=== PATIENT | female | born 1960 | race Caucasian/White ===

== ENCOUNTER → 2018-02-17 14:17 | Outpatient (CLI) | payer BC, SELFPAY ==
--- NOTE | 2018-02-17 | LES_PTH ---
PATIENT: SONIDO ZAPATA LOC: [facility] U#:[id number] AGE/SX: 65/F ROOM: RE02/17/[address]: Dr. Ez Ayon MD : [id number] BED: DIS: SPEC #: [id number] RECD: 02/17/18 14:31 STATUS: JACKY LAURA #: [id number] ALEC: 02/17/18 00:[address]: Ez Ayon DEPT: SURGICAL PATHOLOGY RECD BY: Lorenzo Blackburn ENTERED: 02/17/18 14:31 SP TYPE: Lesion OTHR DR: Dr. Jesu Snow III, MD Tissues: Skin of eyelid, NOS Procedures: Surgery Specimen Level IV HEADER OPERATION: RLL inclusion cyst excision PRE-OP DIAGNOSIS: RLL inclusion cyst TISSUE SUBMITTED: RLL inclusion cyst MICROSCOPIC DIAGNOSIS Right lower lid lesion, biopsy: Basal cell carcinoma. See comment. SANDER:blaze 02/18/18 COMMENT The lesion appears to be completely excised in the planes of sections examined. If there is a residual lesion, complete excision of the lesion is suggested if clinically indicated. MICROSCOPIC DESCRIPTION Slides are reviewed. GROSS DESCRIPTION Received in fixative is one container labeled with the patient's name and designated RLL. The specimen consists of a piece of saglado-white soft tissue measuring 0.2 x 0.2 x 0.1 cm. The specimen is totally submitted in one cassette. / SJ:rg 02/17/18 TC:0 CPT: 22875
== END ==
PROVIDERS: Family Provider Family Medicine; PCP Family Medicine; Visit Provider Ophthalmology
DX: C44.112 Basal cell carcinoma of skin of right eyelid, including canthus (principal)
CPT/HCPCS: 88305